=== PATIENT | female | born 1980 | race Caucasian/White ===

== ENCOUNTER 2017-07-15 03:10 | Inpatient (IN) | payer BC ==
[2017-07-15] MEDS ORDERED: Ondansetron 4 MG/2 ML SDV IVPUSH PRN (07:37)
[2017-07-15] MEDS ORDERED: Nalbuphine 20 MG/1 ML Amp IVPUSH PRN (07:37)
[2017-07-15] MEDS ORDERED: Sodium Chloride 0.9% 10 ML Syringe FLUSH PRN (07:37)
--- NOTE | 2017-07-15 09:16 | PCM.LDHP ---
<Sandi Fuller - Last Filed: 07/15/17 09:10> L&D History of Present Illness - General Date of Service: 07/15/17 Admit Problem/Dx: Patient Status Order with Admit Dx/Problem 07/15/17 07:38 Patient Status [ADT] Routine 07/15/17 07:58 Patient Status [ADT] Routine Admission Diagnosis/Problem Admission Diagnosis/Problem Source of Information: Patient History Limitations: Reports: No Limitations - History of Present Illness Introduction:: Patient is a 37 yo at 37 6/7 wks gestation is admitted for labor. MISTY . Blood type is A+. GBS-. Patient had routine care. Previous was delivered early at 36 wks. Patient records shows patient's brother had a cardiac defect diagnosed in childhood. No other complications per patient. Patient is experiencing strong contractions and reports her water breaking early this morning around 0300. Physical exam shows pitting edema +1, but is otherwise unremarkable. 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 : 4 Para: 1 (1021) LMP (Approximate): - Past Surgical History Female Surgical History: Reports: Dilitation & Evacuation (2003) Social & Family History - Family History Other Cardiac Family History: Brother had a heart defect per patient records - Tobacco Use Smoking Status *Q: Never Smoker - Recreational Drug Use Recreational Drug Use: No H&P Review of Systems - Review of Systems: Review Of Systems: See Below General: Reports: No Symptoms HEENT: Reports: No Symptoms Pulmonary: Reports: No Symptoms Cardiovascular: Reports: No Symptoms Gastrointestinal: Reports: No Symptoms Genitourinary: Reports: No Symptoms Musculoskeletal: Reports: No Symptoms Skin: Reports: No Symptoms Psychiatric: Reports: No Symptoms Neurological: Reports: No Symptoms Hematologic/Lymphatic: Reports: No Symptoms Immunologic: Reports: No Symptoms L&D Exam - Exam Exam: See Below - Vital Signs Vital Signs: Last Vital Signs Temp 98.5 F 07/15/17 07:38 Pulse 95 07/15/17 07:38 Resp 15 07/15/17 07:38 BP 129/74 07/15/17 07:38 Pulse Ox Weight: 215 lb - Exam General: Alert, Oriented HEENT: Conjunctiva Clear, Mucosa Moist & [place], Nares Patent, Normal Nasal Septum , Posterior Pharynx Clear Neck: Supple, Trachea Midline, Lymphadenopathy Lungs: Normal Respiratory Effort Cardiovascular: Regular Rate, Regular Rhythm Rectal Exam: Deferred Back Exam: Normal Inspection Extremities: Normal Inspection, Normal Range of Motion, Non-Tender, Normal Capillary Refill, Pedal Edema (+1) Skin: Warm, Dry, Intact Psychiatric: Alert, Normal Affect, Normal Mood - Patient Data Lab Results Last 24 hrs: Laboratory Results - last 24 hr 07/15/17 07/15/17 07/15/17 Range/Units 03:40 05:05 05:05 WBC 8.09 (3.98-10.04) K/mm3 RBC 4.03 (3.98-5.22) M/mm3 Hgb 12.3 (11.2-15.7) gm/L Hct 36.4 (34.1-44.9) % MCV 90.3 (79.4-94.8) fl MCH 30.5 (25.6-32.2) pg MCHC 33.8 (32.2-35.5) g/dl RDW Std Deviation 46.8 H (36.4-46.3) fL Plt Count 294 (182-369) K/mm3 MPV 10.9 (9.4-12.3) fl Neut % (Auto) 57.9 (34.0-71.1) % Lymph % (Auto) 28.3 (19.3-51.7) % [place] % (Auto) 11.4 (4.7-12.5) % Eos % (Auto) 1.7 (0.7-5.8) Baso % (Auto) 0.2 (0.1-1.2) % Neut # (Auto) 4.68 (1.56-6.13) K/mm3 Lymph # (Auto) 2.29 (1.18-3.74) K/mm3 [place] # (Auto) 0.92 H (0.24-0.36) K/mm3 Eos # (Auto) 0.14 (0.04-0.36) K/mm3 Baso # (Auto) 0.02 (0.01-0.08) K/mm3 Membrane Rupture Positive H Blood Type A POSITIVE Gel Antibody Screen Negative Result Diagrams: 07/15/17 05:05 Problem List Initiated/Reviewed/Updated: No Orders Last 24hrs: Active Orders 24 hr Category Date Time Status Patient Status [ADT] Routine ADT 07/15/17 07:38 Active Patient Status [ADT] Routine ADT 07/15/17 07:58 Active Activity as Tolerated [RC] PFP Care 07/15/17 07:38 Active Communication Order [RC] ASDIRECTED Care 07/15/17 07:38 Active Notify Provider [RC] PFP Care 07/15/17 07:38 Active Notify Provider [RC] PRN Care 07/15/17 07:38 Active Peripheral IV Care [RC] . DIRECTED Care 07/15/17 07:38 Active Pump Management, Intrathecal [RC] ASDIRECTED Care 07/15/17 07:39 Active Vital Signs [RC] PER UNIT ROUTINE Care 07/15/17 07:38 Active Clear Liquid Diet [DIET] Diet 07/15/17 Breakfast Active PATIENT RETYPE [BBK] Routine Lab 07/15/17 05:05 Results TYPE AND SCREEN [BBK] Routine Lab 07/15/17 05:05 Results Lactated Ringers [Ringers, Lactated] 1,000 ml Med 07/15/17 07:45 Active IV ASDIRECTED Nalbuphine [Nubain] Med 07/15/17 07:37 Active 10 mg IVPUSH Q2H PRN Ondansetron [Zofran] Med 07/15/17 07:37 Active 4 mg IVPUSH Q4H PRN Sodium Chloride 0.9% [Saline Flush] Med 07/15/17 07:37 Active 10 ml FLUSH ASDIRECTED PRN Electronic Heart Tones Ext w TOCO [WOMSER] Oth 07/15/17 07:38 Ordered Routine Electronic Heart Tones Internal [WOMSER] Per Unit Oth 07/15/17 07:38 Ordered Routine Peripheral IV Insertion Adult [OM.PC] Routine Oth 07/15/17 07:38 Ordered Resuscitation Status Routine Resus Stat 07/15/17 07:37 Ordered Medication Orders Lactated Ringer's (Ringers, Lactated) 1,000 mls @ 100 mls/hr IV ASDIRECTED RIP Nalbuphine HCl (Nubain) 10 mg IVPUSH Q2H PRN PRN Reason: Pain (moderate 4-6) Ondansetron HCl (Zofran) 4 mg IVPUSH Q4H PRN PRN Reason: Nausea/Vomiting Sodium Chloride (Saline Flush) 10 ml FLUSH ASDIRECTED PRN PRN Reason: Keep Vein Open Assessment/Plan Comment:: Patient is a 37 yo at 37 6/7 wks gestation is admitted for labor. MISTY . Blood type is A+. GBS-. Patient had routine care. Previous was delivered early at 36 wks. Patient records shows patient's brother had a cardiac defect diagnosed in childhood. No other complications per patient. Patient is experiencing strong contractions and reports her water breaking early this morning around 0300. Physical exam shows pitting edema +1, but is otherwise unremarkable. Plan: Continue monitoring <Nitish Truong - Last Filed: 07/15/17 10:24> L&D History of Present Illness - General Admit Problem/Dx: Patient Status Order with Admit Dx/Problem 07/15/17 07:38 Patient Status [ADT] Routine 07/15/17 07:58 Patient Status [ADT] Routine Admission Diagnosis/Problem Admission Diagnosis/Problem Source of Information: Patient History Limitations: Reports: No Limitations - History of Present Illness Introduction:: Cervix is 1 cm dilated for bag ruptured she has had constant leaking of fluid with spontaneous rupture membranes approximate 2:33 AM this morning clear fluid. Vertex presentation 50% effaced soft posterior -1 station, having contractions. Location, : Reports: Uterus Quality: Reports: Ache, Pressure Severity: Moderate Improves with: Reports: None Worsens with: Reports: None Associated Symptoms: Reports: N H&P Review of Systems - Review of Systems: Review Of Systems: See Below General: Reports: No Symptoms HEENT: Reports: No Symptoms Pulmonary: Reports: No Symptoms Cardiovascular: Reports: No Symptoms Gastrointestinal: Reports: No Symptoms Genitourinary: Reports: No Symptoms Musculoskeletal: Reports: No Symptoms Skin: Reports: No Symptoms Psychiatric: Reports: No Symptoms Neurological: Reports: No Symptoms Hematologic/Lymphatic: Reports: No Symptoms Immunologic: Reports: No Symptoms L&D Exam - Exam Exam: See Below - Vital Signs Vital Signs: Last Vital Signs Temp 97.9 F 07/15/17 09:30 Pulse 95 07/15/17 09:30 Resp 15 07/15/17 09:30 BP 129/74 07/15/17 09:30 Pulse Ox 100 07/15/17 09:30 - OB Specific Fundal Height In cm: 38 Contraction Duration (sec): 60 Contraction Frequency (min): 3 Contraction Intensity: Mild to Moderate Movement: Active Heart Tones: Present Heart Tones per Min: 140 Heart Rate (FHR) Variability: Moderate (6-25 bmp) Presentation: Vertex - Gómez Score Gómez Score Cervix Position: Posterior Gómez Score Consistency: Soft Gómez Score Effacement: 31-50% Gómez Score Dilation: 1-2 cm Gómez Score 's Station: -1 ,0 Gómez Score Total: 6 - Exam General: Alert, Oriented HEENT: Conjunctiva Clear, Mucosa Moist & [place], Nares Patent, Normal Nasal Septum , Posterior Pharynx Clear, TMs Clear, PERRLA Neck: Supple, Trachea Midline Lungs: Clear to Auscultation, Normal Respiratory Effort Cardiovascular: Regular Rate, Regular Rhythm GI/Abdominal Exam: Normal Bowel Sounds, Soft, Non-Tender, No Organomegaly, No Distention, No Abnormal Bruit, No Mass, Pelvis Stable Rectal Exam: Deferred Genitourinary: Normal external exam, Normal bimanual exam Extremities: Normal Inspection, Normal Range of Motion, Non-Tender, No Pedal Edema, Normal Capillary Refill Skin: Warm, Dry, Intact Neurological: Reflexes Equal Bilateral Psychiatric: Alert, Normal Affect, Normal Mood - Patient Data Lab Results Last 24 hrs: Laboratory Results - last 24 hr 07/15/17 07/15/17 07/15/17 Range/Units 03:40 05:05 05:05 WBC 8.09 (3.98-10.04) K/mm3 RBC 4.03 (3.98-5.22) M/mm3 Hgb 12.3 (11.2-15.7) gm/L Hct 36.4 (34.1-44.9) % MCV 90.3 (79.4-94.8) fl MCH 30.5 (25.6-32.2) pg MCHC 33.8 (32.2-35.5) g/dl RDW Std Deviation 46.8 H (36.4-46.3) fL Plt Count 294 (182-369) K/mm3 MPV 10.9 (9.4-12.3) fl Neut % (Auto) 57.9 (34.0-71.1) % Lymph % (Auto) 28.3 (19.3-51.7) % [place] % (Auto) 11.4 (4.7-12.5) % Eos % (Auto) 1.7 (0.7-5.8) Baso % (Auto) 0.2 (0.1-1.2) % Neut # (Auto) 4.68 (1.56-6.13) K/mm3 Lymph # (Auto) 2.29 (1.18-3.74) K/mm3 [place] # (Auto) 0.92 H (0.24-0.36) K/mm3 Eos # (Auto) 0.14 (0.04-0.36) K/mm3 Baso # (Auto) 0.02 (0.01-0.08) K/mm3 Membrane Rupture Positive H Blood Type A POSITIVE Gel Antibody Screen Negative Result Diagrams: 07/15/17 05:05 - Problem List (1) 37 weeks gestation of SNOMED Code(s): 57477394 ICD Code: Z3A.37 - 37 WEEKS GESTATION OF Status: Acute Current Visit: Yes (2) Spontaneous rupture of amniotic membranes SNOMED Code(s): 994823790 ICD Code: [id number] - Status: Acute Current Visit: Yes Problem List Initiated/Reviewed/Updated: No Orders Last 24hrs: Active Orders 24 hr Category Date Time Status Patient Status [ADT] Routine ADT 07/15/17 07:38 Active Patient Status [ADT] Routine ADT 07/15/17 07:58 Active Activity as Tolerated [RC] PFP Care 07/15/17 07:38 Active Communication Order [RC] ASDIRECTED Care 07/15/17 07:38 Active Communication Order [RC] ASDIRECTED Care 07/15/17 09:30 Active Cooling Warming Measures [RC] ASDIRECTED Care 07/15/17 09:30 Active Notify Provider [RC] ASDIRECTED Care 07/15/17 09:31 Active Notify Provider [RC] PFP Care 07/15/17 07:38 Active Notify Provider [RC] PRN Care 07/15/17 07:38 Active Oxygen Therapy [RC] ASDIRECTED Care 07/15/17 09:30 Active Peripheral IV Care [RC] . DIRECTED Care 07/15/17 07:38 Active Pulse Oximetry [RC] ASDIRECTED Care 07/15/17 09:30 Active Pump Management, Intrathecal [RC] ASDIRECTED Care 07/15/17 07:39 Active Verify Patient Consent Obtain [RC] ASDIRECTED Care 07/15/17 09:31 Active Vital Signs [RC] PER UNIT ROUTINE Care 07/15/17 07:38 Active Vital Signs [RC] Q1H Care 07/15/17 09:30 Active Clear Liquid Diet [DIET] Diet 07/15/17 Breakfast Active PATIENT RETYPE [BBK] Routine Lab 07/15/17 05:05 Results TYPE AND SCREEN [BBK] Routine Lab 07/15/17 05:05 Results Bupivacaine/fentaNYL/NS [fentaNYL/Bupivacaine/NS 2 MCG- Med 07/15/17 10:00 Active 0.125% 100 ML] 100 ml EPIDUR ASDIRECTED Lactated Ringers [Ringers, Lactated] 1,000 ml Med 07/15/17 07:45 Active IV ASDIRECTED Nalbuphine [Nubain] Med 07/15/17 07:37 Active 10 mg IVPUSH Q2H PRN Ondansetron [Zofran] Med 07/15/17 07:37 Active 4 mg IVPUSH Q4H PRN Sodium Chloride 0.9% [Saline Flush] Med 07/15/17 07:37 Active 10 ml FLUSH ASDIRECTED PRN diphenhydrAMINE [Benadryl] Med 07/15/17 09:31 Active 25 mg IVPUSH Q6H PRN ePHEDrine [ePHEDrine Sulfate] Med 07/15/17 09:31 Active 5 mg IVPUSH ASDIRECTED PRN fentaNYL [Sublimaze] Med 07/15/17 09:31 Active 100 mcg EPIDUR Q3H PRN Electronic Heart Tones Ext w TOCO [WOMSER] Oth 07/15/17 07:38 Ordered Routine Electronic Heart Tones Internal [WOMSER] Per Unit Oth 07/15/17 07:38 Ordered Routine Peripheral IV Insertion Adult [OM.PC] Routine Oth 07/15/17 07:38 Ordered Resuscitation Status Routine Resus Stat 07/15/17 07:37 Ordered Medication Orders Diphenhydramine HCl (Benadryl) 25 mg IVPUSH Q6H PRN PRN Reason: Itching Ephedrine Sulfate (Ephedrine Sulfate) 5 mg IVPUSH ASDIRECTED PRN PRN Reason: HYPOTENTSION Fentanyl (Sublimaze) 100 mcg EPIDUR Q3H PRN PRN Reason: PAIN Last Admin: 07/15/17 09:55 Dose: 100 mcg Fentanyl/Bupivacaine HCl (Fentanyl/Bupivacaine/Ns 2 Mcg-0.125% 100 Ml) 100 ml EPIDUR ASDIRECTED RIP Lactated Ringer's (Ringers, Lactated) 1,000 mls @ 100 mls/hr IV ASDIRECTED RIP Nalbuphine HCl (Nubain) 10 mg IVPUSH Q2H PRN PRN Reason: Pain (moderate 4-6) Ondansetron HCl (Zofran) 4 mg IVPUSH Q4H PRN PRN Reason: Nausea/Vomiting Sodium Chloride (Saline Flush) 10 ml FLUSH ASDIRECTED PRN PRN Reason: Keep Vein Open Assessment/Plan Comment:: Patient seen and examined and discussed with medical student for bag ruptured at 1020 clear fluid, patient had gross pooling and leaking of clear fluid since 2:30 AM with spontaneous rupture membranes at that time. Oxytocin augmentation as needed.
[2017-07-15] MEDS: Lactated Ringers 1,000 ML IV SCH ×3 (09:30→11:32)
--- NOTE | 2017-07-15 09:30 | PCM.PREANE ---
Preanesthetic Assessment - Anesthesia/Transfusion/Family Hx Anesthesia History: Prior Anesthesia Without Reaction Family History of Anesthesia Reaction: No Transfusion History: No Prior Transfusion(s) - Review of Systems General: No Symptoms Pulmonary: No Symptoms Cardiovascular: No Symptoms Gastrointestinal: No Symptoms Neurological: No Symptoms Other: Reports: None - Physical Assessment Pulse: 95 O2 Sat by Pulse Oximetry: 100 Respiratory Rate: 15 Blood Pressure: 129/74 Temperature: 36.6 C Vital Signs: Last Vital Signs Temp 36.9 C 07/15/17 07:38 Pulse 95 07/15/17 07:38 Resp 15 07/15/17 07:38 BP 129/74 07/15/17 07:38 Pulse Ox Height: 1.63 m Weight: 97.522 kg ASA Class: 2 Mental Status: Alert & Oriented x3 Dentition: Reports: Normal Dentition Thyro-Mental Finger Breadths: 3 Mouth Opening Finger Breadths: 3 ROM/Head Extension: Full Lungs: Clear to Auscultation, Normal Respiratory Effort Cardiovascular: Regular Rate, Regular Rhythm, No Murmurs - Lab Values: Laboratory Last Values WBC 8.09 K/mm3 (3.98-10.04) 07/15/17 05:05 RBC 4.03 M/mm3 (3.98-5.22) 07/15/17 05:05 Hgb 12.3 gm/L (11.2-15.7) 07/15/17 05:05 Hct 36.4 % (34.1-44.9) 07/15/17 05:05 MCV 90.3 fl (79.4-94.8) 07/15/17 05:05 MCH 30.5 pg (25.6-32.2) 07/15/17 05:05 MCHC 33.8 g/dl (32.2-35.5) 07/15/17 05:05 RDW Std Deviation 46.8 fL (36.4-46.3) H 07/15/17 05:05 Plt Count 294 K/mm3 (182-369) 07/15/17 05:05 MPV 10.9 fl (9.4-12.3) 07/15/17 05:05 Neut % (Auto) 57.9 % (34.0-71.1) 07/15/17 05:05 Lymph % (Auto) 28.3 % (19.3-51.7) 07/15/17 05:05 [place] % (Auto) 11.4 % (4.7-12.5) 07/15/17 05:05 Eos % (Auto) 1.7 (0.7-5.8) 07/15/17 05:05 Baso % (Auto) 0.2 % (0.1-1.2) 07/15/17 05:05 Neut # (Auto) 4.68 K/mm3 (1.56-6.13) 07/15/17 05:05 Lymph # (Auto) 2.29 K/mm3 (1.18-3.74) 07/15/17 05:05 [place] # (Auto) 0.92 K/mm3 (0.24-0.36) H 07/15/17 05:05 Eos # (Auto) 0.14 K/mm3 (0.04-0.36) 07/15/17 05:05 Baso # (Auto) 0.02 K/mm3 (0.01-0.08) 07/15/17 05:05 Membrane Rupture Positive H 07/15/17 03:40 Blood Type A POSITIVE 07/15/17 05:05 Gel Antibody Screen Negative 07/15/17 05:05 - Allergies Allergies/Adverse Reactions: Allergies Allergy/AdvReac Type Severity Reaction Status Date / Time No Known Allergies Allergy Verified 07/15/17 07:42 - Anesthesia Plan Pre-Op Medication Ordered: None - Acknowledgements Anesthesia Type Planned: Epidural Pt an Appropriate Candidate for the Planned Anesthesia: Yes Alternatives and Risks of Anesthesia Discussed w Pt/Guardian: Yes Pt/Guardian Understands and Agrees with Anesthesia Plan: Yes PreAnesthesia Questionnaire Gastrointestinal History: Reports: GERD 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
[2017-07-15] MEDS ORDERED: ePHEDrine 50 MG/ML SDV IVPUSH PRN (09:31)
[2017-07-15] MEDS ORDERED: fentaNYL 100 MCG/2 ML SDV EPIDUR PRN (09:31)
[2017-07-15] MEDS ORDERED: diphenhydrAMINE 50 MG/ML SDV IVPUSH PRN (09:31)
[2017-07-15] MEDS ORDERED: Bupivacaine/fentaNYL/NS 100 ML Bag EPIDUR SCH (10:00)
[2017-07-15] MEDS ORDERED: Oxytocin/Lactated Ringers 10 UNIT/1,000 ML BAG IV ONE (10:29)
[2017-07-15] MEDS ORDERED: Oxytocin/Lactated Ringers 10 UNIT/1,000 ML BAG IV SCH (10:30)
--- NOTE | 2017-07-15 16:52 | PCM.SN ---
- Free Text/Narrative Note: Cervix is 5 cm dilated, 90-100% effaced, soft, mid position, vertex -1. Category 1 heart rate. Pitocin at 16 MIUs per minute
[2017-07-15] MEDS ORDERED: Lidocaine 1% 50 ML MDV ONE (18:11)
--- NOTE | 2017-07-15 18:54 | PCM.DEL ---
L & D Note - General Info Date of Service: 07/15/17 Mother's Due Date: 07/30/17 - Delivery Note Labor: Spontaneous, Augmented by ARM, Augmented by Oxytocin Delivery Outcome: Livebirth (female live born MANISH Sunday[birth year]17 at 1835. 9/9 wt: 3100 g/ 6 lbs 13.3 oz) Infant Delivery Method: Spontaneous Vaginal Delivery-Single Delivery Mode: Spontaneous Presentation: Left Occiput Anterior (MANISH) Nuchal Cord: None Prep: Povidone-Iodine (Betadine Anesthesia Type: Local, Epidural Anesthetic: Lidocaine (Xylocaine) 1% Plain Local Anesthetic Volume: 2cc Amniotic Fluid Description: Clear Episiotomy Type: None Laceration: 1st Degree (midline ) Suture type: Other (monocryl ) Suture size: 3-0 Placenta: Intact, Spontaneous (central cord insertion. delivered at 1840 sunday07/15/17. Tao intact examined discarded) Cord: 3 Vessels Estimated Blood Loss: 250 Resuscitation Needed: No [place]: Suctioned, Bulb Syringe, Stimulated, Warmed, [place] Used, Warmer Used Provider: Nitish Truong Score 1 min: 9 Score 5 min: 9 - Patient Data Vitals - Most Recent: Last Vital Signs Temp 97.9 F 07/15/17 09:30 Pulse 95 07/15/17 09:30 Resp 15 07/15/17 09:30 BP 129/74 07/15/17 09:30 Pulse Ox 100 07/15/17 09:30 Weight - Most Recent: 215 lb I&O - Last 24 Hours: Intake & Output 07/15/17 07/15/17 07/15/17 06:59 14:59 22:59 Intake Total 360 Balance 360 Lab Results Last 24 Hours: Laboratory Results - last 24 hr 07/15/17 07/15/17 07/15/17 Range/Units 03:40 05:05 05:05 WBC 8.09 (3.98-10.04) K/mm3 RBC 4.03 (3.98-5.22) M/mm3 Hgb 12.3 (11.2-15.7) gm/L Hct 36.4 (34.1-44.9) % MCV 90.3 (79.4-94.8) fl MCH 30.5 (25.6-32.2) pg MCHC 33.8 (32.2-35.5) g/dl RDW Std Deviation 46.8 H (36.4-46.3) fL Plt Count 294 (182-369) K/mm3 MPV 10.9 (9.4-12.3) fl Neut % (Auto) 57.9 (34.0-71.1) % Lymph % (Auto) 28.3 (19.3-51.7) % [place] % (Auto) 11.4 (4.7-12.5) % Eos % (Auto) 1.7 (0.7-5.8) Baso % (Auto) 0.2 (0.1-1.2) % Neut # (Auto) 4.68 (1.56-6.13) K/mm3 Lymph # (Auto) 2.29 (1.18-3.74) K/mm3 [place] # (Auto) 0.92 H (0.24-0.36) K/mm3 Eos # (Auto) 0.14 (0.04-0.36) K/mm3 Baso # (Auto) 0.02 (0.01-0.08) K/mm3 Membrane Rupture Positive H Blood Type A POSITIVE Gel Antibody Screen Negative Med Orders - Current: Current Medications Diphenhydramine HCl (Benadryl) 25 mg IVPUSH Q6H PRN PRN Reason: Itching Ephedrine Sulfate (Ephedrine Sulfate) 5 mg IVPUSH ASDIRECTED PRN PRN Reason: HYPOTENTSION Fentanyl (Sublimaze) 100 mcg EPIDUR Q3H PRN PRN Reason: PAIN Last Admin: 07/15/17 09:55 Dose: 100 mcg Fentanyl/Bupivacaine HCl (Fentanyl/Bupivacaine/Ns 2 Mcg-0.125% 100 Ml) 100 ml EPIDUR ASDIRECTED RIP Lactated Ringer's (Ringers, Lactated) 1,000 mls @ 100 mls/hr IV ASDIRECTED RIP Last Admin: 07/15/17 11:32 Dose: 999 mls/hr Oxytocin/Lactated Ringer's (Pitocin In Lr 10 Units/1,000 Ml) 10 unit in 1,000 mls @ 12 mls/hr IV TITRATE RIP; 2 MUNITS/MIN PRN Reason: Protocol Last Titration: 07/15/17 16:00 Dose: 16 munits/min, 96 mls/hr Nalbuphine HCl (Nubain) 10 mg IVPUSH Q2H PRN PRN Reason: Pain (moderate 4-6) Ondansetron HCl (Zofran) 4 mg IVPUSH Q4H PRN PRN Reason: Nausea/Vomiting Sodium Chloride (Saline Flush) 10 ml FLUSH ASDIRECTED PRN PRN Reason: Keep Vein Open Discontinued Medications Oxytocin/Lactated Ringer's (Pitocin In Lr 10 Units/1,000 Ml) Confirm Administered Dose 10 unit in 1,000 mls @ as directed IV .SideStep ONE Stop: 07/15/17 10:30 Last Admin: 07/15/17 11:32 Dose: Not Given Lidocaine HCl (Xylocaine 1%) Confirm Administered Dose 50 ml .ROUTE .SideStep ONE Stop: 07/15/17 18:12 - Problem List & Annotations (1) 37 weeks gestation of SNOMED Code(s): 50292130 Code(s): Z3A.37 - 37 WEEKS GESTATION OF Status: Acute Current Visit: Yes (2) Spontaneous rupture of amniotic membranes SNOMED Code(s): 366132517 Code(s): RNE1864 - Status: Acute Current Visit: Yes (3) First degree laceration of perineum during delivery, SNOMED Code(s): 135253165 Code(s): O70.0 - FIRST DEGREE PERINEAL LACERATION DURING DELIVERY Status: Acute Current Visit: Yes - Problem List Review Problem List Initiated/Reviewed/Updated: No - My Orders Last 24 Hours: My Active Orders 07/15/17 07:37 Nalbuphine [Nubain] 10 mg IVPUSH Q2H PRN Ondansetron [Zofran] 4 mg IVPUSH Q4H PRN Sodium Chloride 0.9% [Saline Flush] 10 ml FLUSH ASDIRECTED PRN Resuscitation Status Routine 07/15/17 07:38 Patient Status [ADT] Routine Communication Order [RC] ASDIRECTED Peripheral IV Care [RC] . DIRECTED Vital Signs [RC] PER UNIT ROUTINE Electronic Heart Tones Ext w TOCO [WOMSER] Routine Electronic Heart Tones Internal [WOMSER] Per Unit Routine Peripheral IV Insertion Adult [OM.PC] Routine 07/15/17 07:39 Pump Management, Intrathecal [RC] ASDIRECTED 07/15/17 07:45 Lactated Ringers [Ringers, Lactated] 1,000 ml IV ASDIRECTED 07/15/17 07:58 Patient Status [ADT] Routine 07/15/17 10:30 Oxytocin/Lactated Ringers [Pitocin in LR 10 Units/1,000 ML] 10 unit in 1,000 ml IV TITRATE 07/15/17 Breakfast Clear Liquid Diet [DIET] - Plan Plan:: Patient seen and examined and discussed with medical student for bag ruptured at 1020 clear fluid, patient had gross pooling and leaking of clear fluid since 2:30 AM with spontaneous rupture membranes at that time. Oxytocin augmentation as needed.
[2017-07-15] MEDS ORDERED: Benzocaine/Menthol 20%-0.5% Spray 56 GM Canister TOP PRN (19:07)
[2017-07-15] MEDS ORDERED: Acetaminophen 325 MG Tab PO PRN (19:07)
[2017-07-15] MEDS ORDERED: Docusate Sodium 100 MG Cap PO PRN (19:07)
[2017-07-15] MEDS ORDERED: Lanolin 100% Cream 7 GM Tube TOP PRN (19:07)
[2017-07-15] MEDS ORDERED: Witch Hazel Medicated Pads 100/Jar TOP PRN (19:07)
[2017-07-15] MEDS ORDERED: Lidocaine 1% 50 ML MDV INJECT ONE (19:29)
[2017-07-15] MEDS: Ibuprofen 600 MG Tab PO PRN (20:12)
[2017-07-15] MEDS ORDERED: ePHEDrine 50 MG/ML SDV ONE (22:22)
[2017-07-15] MEDS ORDERED: Bupivacaine 0.25% 10 ML SDV ONE (22:22)
[2017-07-16] MEDS: Ibuprofen 600 MG Tab PO PRN ×4 (00:46→22:00)
--- NOTE | 2017-07-16 05:57 | PCM.DCSUM1 ---
Discharge Summary - Hospital Course Free Text/Narrative:: [facility] LIVE L/D Delivery Note Patient Name: NEGRA GILL Date of : 84 Patient Status: Inpatient Attending Provider: Nitish Truong Date: 07/15/17 18:48 Initialization Date: 07/15/17 18:48 L & D Note - General Info Date of Service: 07/15/17 Mother's Due Date: 07/30/17 - Delivery Note Labor: Spontaneous, Augmented by ARM, Augmented by Oxytocin Delivery Outcome: Livebirth (female live born MANISH Sunday07/15/17 at 1835. 9/ wt: 3100 g/ 6 lbs 13.3 oz) Delivery Method: Spontaneous Vaginal Delivery-Single Infant Delivery Mode: Spontaneous Presentation: Left Occiput Anterior (MANISH) Nuchal Cord: None Prep: Povidone-Iodine (Betadine Anesthesia Type: Local, Epidural Anesthetic: Lidocaine (Xylocaine) 1% Plain Local Anesthetic Volume: 2cc Amniotic Fluid Description: Clear Episiotomy Type: None Laceration: 1st Degree (midline ) Suture type: Other (monocryl ) Suture size: 3-0 Placenta: Intact, Spontaneous (central cord insertion. delivered at 1840 sunday07/15/17. [place] intact examined discarded) Cord: 3 Vessels Estimated Blood Loss: 250 Resuscitation Needed: No Rocky: Suctioned, Bulb Syringe, Stimulated, Warmed, [place] Used, Warmer Used Provider: Nitish Truong Score 1 min: 9 Score 5 min: 9 - Patient Data Vitals - Most Recent: Last Vital Signs Temp 97.9 F 07/15/17 09:30 Pulse 95 07/15/17 09:30 Resp 15 07/15/17 09:30 BP 129/74 07/15/17 09:30 Pulse Ox 100 07/15/17 09:30 Weight - Most Recent: 215 lb I&O - Last 24 Hours: Intake & Output 07/15/17 07/15/17 07/15/17 06:59 14:59 22:59 Intake Total 360 Balance 360 Lab Results Last 24 Hours: Laboratory Results - last 24 hr 07/15/17 07/15/17 07/15/17 Range/Units 03:40 05:05 05:05 WBC 8.09 (3.98-10.04) K/mm3 RBC 4.03 (3.98-5.22) M/mm3 Hgb 12.3 (11.2-15.7) gm/L Hct 36.4 (34.1-44.9) % MCV 90.3 (79.4-94.8) fl MCH 30.5 (25.6-32.2) pg MCHC 33.8 (32.2-35.5) g/dl RDW Std Deviation 46.8 H (36.4-46.3) fL Plt Count 294 (182-369) K/mm3 MPV 10.9 (9.4-12.3) fl Neut % (Auto) 57.9 (34.0-71.1) % Lymph % (Auto) 28.3 (19.3-51.7) % Rosebud % (Auto) 11.4 (4.7-12.5) % Eos % (Auto) 1.7 (0.7-5.8) Baso % (Auto) 0.2 (0.1-1.2) % Neut # (Auto) 4.68 (1.56-6.13) K/mm3 Lymph # (Auto) 2.29 (1.18-3.74) K/mm3 Rose[place] # (Auto) 0.92 H (0.24-0.36) K/mm3 Eos # (Auto) 0.14 (0.04-0.36) K/mm3 Baso # (Auto) 0.02 (0.01-0.08) K/mm3 Membrane Rupture Positive H Blood Type A POSITIVE Gel Antibody Screen Negative Med Orders - Current: Current Medications Diphenhydramine HCl (Benadryl) 25 mg IVPUSH Q6H PRN PRN Reason: Itching Ephedrine Sulfate (Ephedrine Sulfate) 5 mg IVPUSH ASDIRECTED PRN PRN Reason: HYPOTENTSION Fentanyl (Sublimaze) 100 mcg EPIDUR Q3H PRN PRN Reason: PAIN Last Admin: 07/15/17 09:55 Dose: 100 mcg Fentanyl/Bupivacaine HCl (Fentanyl/Bupivacaine/Ns 2 Mcg-0.125% 100 Ml) 100 ml EPIDUR ASDIRECTED RIP Lactated Ringer's (Ringers, Lactated) 1,000 mls @ 100 mls/hr IV ASDIRECTED RIP Last Admin: 07/15/17 11:32 Dose: 999 mls/hr Oxytocin/Lactated Ringer's (Pitocin In Lr 10 Units/1,000 Ml) 10 unit in 1,000 mls @ 12 mls/hr IV TITRATE RIP; 2 MUNITS/MIN PRN Reason: Protocol Last Titration: 07/15/17 16:00 Dose: 16 munits/min, 96 mls/hr Nalbuphine HCl (Nubain) 10 mg IVPUSH Q2H PRN PRN Reason: Pain (moderate 4-6) Ondansetron HCl (Zofran) 4 mg IVPUSH Q4H PRN PRN Reason: Nausea/Vomiting Sodium Chloride (Saline Flush) 10 ml FLUSH ASDIRECTED PRN PRN Reason: Keep Vein Open Discontinued Medications Oxytocin/Lactated Ringer's (Pitocin In Lr 10 Units/1,000 Ml) Confirm Administered Dose 10 unit in 1,000 mls @ as directed IV .[facility] [employer] ONE Stop: 07/15/17 10:30 Last Admin: 07/15/17 11:32 Dose: Not Given Lidocaine HCl (Xylocaine 1%) Confirm Administered Dose 50 ml .ROUTE .[employer] [employer] ONE Stop: 07/15/17 18:12 - Problem List & Annotations (1) 37 weeks gestation of SNOMED Code(s): 38433343 Code(s): Z3A.37 - 37 WEEKS GESTATION OF Status: Acute Current Visit: Yes (2) Spontaneous rupture of amniotic membranes SNOMED Code(s): 938345007 Code(s): AHC4220 - Status: Acute Current Visit: Yes (3) First degree laceration of perineum during delivery, SNOMED Code(s): 244022481 Code(s): O70.0 - FIRST DEGREE PERINEAL LACERATION DURING DELIVERY Status: Acute Current Visit: Yes - Problem List Review Problem List Initiated/Reviewed/Updated: No - My Orders Last 24 Hours: My Active Orders 07/15/17 07:37 Nalbuphine [Nubain] 10 mg IVPUSH Q2H PRN Ondansetron [Zofran] 4 mg IVPUSH Q4H PRN Sodium Chloride 0.9% [Saline Flush] 10 ml FLUSH ASDIRECTED PRN Resuscitation Status Routine 07/15/17 07:38 Patient Status [ADT] Routine Communication Order [RC] ASDIRECTED Peripheral IV Care [RC] . DIRECTED Vital Signs [RC] PER UNIT ROUTINE Electronic Heart Tones Ext w TOCO [WOMSER] Routine Electronic Heart Tones Internal [WOMSER] Per Unit Routine Peripheral IV Insertion Adult [OM.PC] Routine 07/15/17 07:39 Pump Management, Intrathecal [RC] ASDIRECTED 07/15/17 07:45 Lactated Ringers [Ringers, Lactated] 1,000 ml IV ASDIRECTED 07/15/17 07:58 Patient Status [ADT] Routine 07/15/17 10:30 Oxytocin/Lactated Ringers [Pitocin in LR 10 Units/1,000 ML] 10 unit in 1,000 ml IV TITRATE 07/15/17 Breakfast Clear Liquid Diet [DIET] - Plan Plan:: Patient seen and examined and discussed with medical student for bag ruptured at 1020 clear fluid, patient had gross pooling and leaking of clear fluid since 2:30 AM with spontaneous rupture membranes at that time. Oxytocin augmentation as needed. HPI Initial Comments: [facility] LIVE L/D Delivery Note Patient Name: NEGRA GILL Date of : 84 Patient Status: Inpatient Attending Provider: Nitish Truong Date: 07/15/17 18:48 Initialization Date: 07/15/17 18:48 L & D Note - General Info Date of Service: 07/15/17 Mother's Due Date: 07/30/17 - Delivery Note Labor: Spontaneous, Augmented by ARM, Augmented by Oxytocin Delivery Outcome: Livebirth (female live born MANISHSunday[birth year] at 1835. 9/9 wt: 3100 g/ 6 lbs 13.3 oz) Delivery Method: Spontaneous Vaginal Delivery-Single Infant Delivery Mode: Spontaneous Presentation: Left Occiput Anterior (MANISH) Nuchal Cord: None Prep: Povidone-Iodine (Betadine Anesthesia Type: Local, Epidural Anesthetic: Lidocaine (Xylocaine) 1% Plain Local Anesthetic Volume: 2cc Amniotic Fluid Description: Clear Episiotomy Type: None Laceration: 1st Degree (midline ) Suture type: Other (monocryl ) Suture size: 3-0 Placenta: Intact, Spontaneous (central cord insertion. delivered at 184Sunday07/15/17. Tao intact examined discarded) Cord: 3 Vessels Estimated Blood Loss: 250 Resuscitation Needed: No Rocky: Suctioned, Bulb Syringe, Stimulated, Warmed, [place] Used, Warmer Used Provider: Nitish Truong Score 1 min: 9 Score 5 min: 9 - Patient Data Vitals - Most Recent: Last Vital Signs Temp 97.9 F 07/15/17 09:30 Pulse 95 07/15/17 09:30 Resp 15 07/15/17 09:30 BP 129/74 07/15/17 09:30 Pulse Ox 100 07/15/17 09:30 Weight - Most Recent: 215 lb I&O - Last 24 Hours: Intake & Output 07/15/17 07/15/17 07/15/17 06:59 14:59 22:59 Intake Total 360 Balance 360 Lab Results Last 24 Hours: Laboratory Results - last 24 hr 07/15/17 07/15/17 07/15/17 Range/Units 03:40 05:05 05:05 WBC 8.09 (3.98-10.04) K/mm3 RBC 4.03 (3.98-5.22) M/mm3 Hgb 12.3 (11.2-15.7) gm/L Hct 36.4 (34.1-44.9) % MCV 90.3 (79.4-94.8) fl MCH 30.5 (25.6-32.2) pg MCHC 33.8 (32.2-35.5) g/dl RDW Std Deviation 46.8 H (36.4-46.3) fL Plt Count 294 (182-369) K/mm3 MPV 10.9 (9.4-12.3) fl Neut % (Auto) 57.9 (34.0-71.1) % Lymph % (Auto) 28.3 (19.3-51.7) % Rosebud % (Auto) 11.4 (4.7-12.5) % Eos % (Auto) 1.7 (0.7-5.8) Baso % (Auto) 0.2 (0.1-1.2) % Neut # (Auto) 4.68 (1.56-6.13) K/mm3 Lymph # (Auto) 2.29 (1.18-3.74) K/mm3 [place] # (Auto) 0.92 H (0.24-0.36) K/mm3 Eos # (Auto) 0.14 (0.04-0.36) K/mm3 Baso # (Auto) 0.02 (0.01-0.08) K/mm3 Membrane Rupture Positive H Blood Type A POSITIVE Gel Antibody Screen Negative Med Orders - Current: Current Medications Diphenhydramine HCl (Benadryl) 25 mg IVPUSH Q6H PRN PRN Reason: Itching Ephedrine Sulfate (Ephedrine Sulfate) 5 mg IVPUSH ASDIRECTED PRN PRN Reason: HYPOTENTSION Fentanyl (Sublimaze) 100 mcg EPIDUR Q3H PRN PRN Reason: PAIN Last Admin: 07/15/17 09:55 Dose: 100 mcg Fentanyl/Bupivacaine HCl (Fentanyl/Bupivacaine/Ns 2 Mcg-0.125% 100 Ml) 100 ml EPIDUR ASDIRECTED RIP Lactated Ringer's (Ringers, Lactated) 1,000 mls @ 100 mls/hr IV ASDIRECTED RIP Last Admin: 07/15/17 11:32 Dose: 999 mls/hr Oxytocin/Lactated Ringer's (Pitocin In Lr 10 Units/1,000 Ml) 10 unit in 1,000 mls @ 12 mls/hr IV TITRATE RIP; 2 MUNITS/MIN PRN Reason: Protocol Last Titration: 07/15/17 16:00 Dose: 16 munits/min, 96 mls/hr Nalbuphine HCl (Nubain) 10 mg IVPUSH Q2H PRN PRN Reason: Pain (moderate 4-6) Ondansetron HCl (Zofran) 4 mg IVPUSH Q4H PRN PRN Reason: Nausea/Vomiting Sodium Chloride (Saline Flush) 10 ml FLUSH ASDIRECTED PRN PRN Reason: Keep Vein Open Discontinued Medications Oxytocin/Lactated Ringer's (Pitocin In Lr 10 Units/1,000 Ml) Confirm Administered Dose 10 unit in 1,000 mls @ as directed IV .STK-MED ONE Stop: 07/15/17 10:30 Last Admin: 07/15/17 11:32 Dose: Not Given Lidocaine HCl (Xylocaine 1%) Confirm Administered Dose 50 ml .ROUTE .[employer] [employer] ONE Stop: 07/15/17 18:12 - Problem List & Annotations (1) 37 weeks gestation of SNOMED Code(s): 01366254 Code(s): Z3A.37 - 37 WEEKS GESTATION OF Status: Acute Current Visit: Yes (2) Spontaneous rupture of amniotic membranes SNOMED Code(s): 997395705 Code(s): YHA8641 - Status: Acute Current Visit: Yes (3) First degree laceration of perineum during delivery, SNOMED Code(s): 240209189 Code(s): O70.0 - FIRST DEGREE PERINEAL LACERATION DURING DELIVERY Status: Acute Current Visit: Yes - Problem List Review Problem List Initiated/Reviewed/Updated: No - My Orders Last 24 Hours: My Active Orders 07/15/17 07:37 Nalbuphine [Nubain] 10 mg IVPUSH Q2H PRN Ondansetron [Zofran] 4 mg IVPUSH Q4H PRN Sodium Chloride 0.9% [Saline Flush] 10 ml FLUSH ASDIRECTED PRN Resuscitation Status Routine 07/15/17 07:38 Patient Status [ADT] Routine Communication Order [RC] ASDIRECTED Peripheral IV Care [RC] . DIRECTED Vital Signs [RC] PER UNIT ROUTINE Electronic Heart Tones Ext w TOCO [WOMSER] Routine Electronic Heart Tones Internal [WOMSER] Per Unit Routine Peripheral IV Insertion Adult [OM.PC] Routine 07/15/17 07:39 Pump Management, Intrathecal [RC] ASDIRECTED 07/15/17 07:45 Lactated Ringers [Ringers, Lactated] 1,000 ml IV ASDIRECTED 07/15/17 07:58 Patient Status [ADT] Routine 07/15/17 10:30 Oxytocin/Lactated Ringers [Pitocin in LR 10 Units/1,000 ML] 10 unit in 1,000 ml IV TITRATE 07/15/17 Breakfast Clear Liquid Diet [DIET] - Plan Plan:: Patient seen and examined and discussed with medical student for bag ruptured at 1020 clear fluid, patient had gross pooling and leaking of clear fluid since 2:30 AM with spontaneous rupture membranes at that time. Oxytocin augmentation as needed. Brief History: [facility] LIVE . L/D Delivery Note. Patient Name: NEGRA GILL Record Number: [id number]. Date of : Patient Status: Inpatient. Attending Provider: Nitish Truong Number: [id number]. Date: 07/15/17 18:48Initialization Date: 07/15/17 18:48. L & D Note. - General Info. Date of Service: 07/15/17. Mother's Due Date: 07/30/17. - Delivery Note. Labor: Spontaneous, Augmented by ARM, Augmented by Oxytocin. Delivery Outcome: Livebirth (female live born MANISH Sunday07/15/17 at 1835. 06/09 wt: 3100 g/ 6 lbs 13.3 oz). Delivery Method: Spontaneous Vaginal Delivery-Single. Delivery Mode: Spontaneous. Presentation: Left Occiput Anterior (MANISH). Nuchal Cord: None. Prep: Povidone- Iodine (Betadine. Anesthesia Type: Local, Epidural. Anesthetic: Lidocaine ( Xylocaine) 1% Plain. Local Anesthetic Volume: 2cc. Amniotic Fluid Description : Clear. Episiotomy Type: None. Laceration: 1st Degree (midline ). Suture type: Other (monocryl ). Suture size: 3-0. Placenta: Intact, Spontaneous ( central cord insertion. delivered at 1840 sunday07/15/17. Tao intact examined discarded). Cord: 3 Vessels. Estimated Blood Loss: 250. Resuscitation Needed: No. Rocky: Suctioned, Bulb Syringe, Stimulated, Warmed , [place] Used, Warmer Used. Provider: Nitish Truong. Score 1 min: 9. Score 5 min: 9. - Patient Data. Vitals - Most Recent: Last Vital Signs. Temp 97.9 F 07/15/17 09:30. Pulse 95 07/15/17 09:30. Resp 15 07/15/17 09:30. BP 129/74 07/15/17 09:30. Pulse Ox 100 07/15/17 09: 30. Weight - Most Recent: 215 lb. I&O - Last 24 Hours: Intake & Output. . 06:5914:5922:59. Intake Oesbs714. [id number]. Lab Results Last 24 Hours: Laboratory Results - last 24 hr. 07/15/1710/Range/Units. 03:4005:0505:05. WBC 8.09 (3.98-10.04) K/mm3. RBC 4.03 (3.98- 5.22) M/mm3. Hgb 12.3 (11.2-15.7) gm/L. Hct 36.4 (34.1-44.9) %. MCV 90.3 ( 79.4-94.8) fl. MCH 30.5 (25.6-32.2) pg. MCHC 33.8 (32.2-35.5) g/dl. RDW Std Deviation 46.8 H (36.4-46.3) fL. Plt Count 294 (182-369) K/mm3. MPV 10.9 (9.4-12.3) fl. Neut % (Auto) 57.9 (34.0-71.1) %. Lymph % (Auto) 28.3 ( 19.3-51.7) %. Rosebud % (Auto) 11.4 (4.7-12.5) %. Eos % (Auto) 1.7 (0.7-5.8). Baso % (Auto) 0.2 (0.1-1.2) %. Neut # (Auto) 4.68 (1.56-6.13) K/mm3. Lymph # (Auto) 2.29 (1.18-3.74) K/mm3. [place] # (Auto) 0.92 H (0.24-0.36) K/mm3. Eos # (Auto) 0.14 (0.04-0.36) K/mm3. Baso # (Auto) 0.02 (0.01-0.08) K/mm3. Membrane Rupture Positive H. Blood Type A POSITIVE. Gel Antibody Screen Negative. Med Orders - Current: Current Medications. Diphenhydramine HCl ( Benadryl) 25 mg IVPUSH Q6H PRN. PRN Reason: Itching. Ephedrine Sulfate ( Ephedrine Sulfate) 5 mg IVPUSH ASDIRECTED PRN. PRN Reason: HYPOTENTSION. Fentanyl (Sublimaze) 100 mcg EPIDUR Q3H PRN. PRN Reason: PAIN. Last Admin: 09:55 Dose: 100 mcg. Fentanyl/Bupivacaine HCl (Fentanyl/Bupivacaine/Ns 2 Mcg-0.125% 100 Ml) 100 ml EPIDUR ASDIRECTED RIP. Lactated Ringer's (Ringers , Lactated) 1,000 mls @ 100 mls/hr IV ASDIRECTED RIP. Last Admin: 07/15/17 11: 32 Dose: 999 mls/hr. Oxytocin/Lactated Ringer's (Pitocin In Lr 10 Units/1,000 Ml) 10 unit in 1,000 mls @ 12 mls/hr IV TITRATE RIP; 2 MUNITS/MIN. PRN Reason : Protocol. Last Titration: 07/15/17 16:00 Dose: 16 munits/min, 96 mls/hr. Nalbuphine HCl (Nubain) 10 mg IVPUSH Q2H PRN. PRN Reason: Pain (moderate 4-6) . Ondansetron HCl (Zofran) 4 mg IVPUSH Q4H PRN. PRN Reason: Nausea/Vomiting. Sodium Chloride (Saline Flush) 10 ml FLUSH ASDIRECTED PRN. PRN Reason: Keep Vein Open. Discontinued Medications. Oxytocin/Lactated Ringer's (Pitocin In Lr 10 Units/1,000 Ml) Confirm Administered Dose 10 unit in 1,000 mls @ as directed IV .STK-MED ONE. Stop: 07/15/17 10:30. Last Admin: 07/15/17 11:32 Dose: Not Given. Lidocaine HCl (Xylocaine 1%) Confirm Administered Dose 50 ml .ROUTE .STK-MED ONE. Stop: 07/15/17 18:12. - Problem List & Annotations. (1) 37 weeks gestation of . SNOMED Code(s): 06693585. Code(s): Z3A.37 - 37 WEEKS GESTATION OF Status: Acute Current Visit: Yes. (2) Spontaneous rupture of amniotic membranes. SNOMED Code(s): 472608513. Code(s) : ITY8395 - Status: Acute Current Visit: Yes. (3) First degree laceration of perineum during delivery, . SNOMED Code(s): 349864389. Code(s): O70.0 - FIRST DEGREE PERINEAL LACERATION DURING DELIVERY Status: Acute Current Visit: Yes. - Problem List Review. Problem List Initiated/Reviewed/ Updated: No. - My Orders. Last 24 Hours: My Active Orders. 07/15/17 07:37. Nalbuphine [Nubain] 10 mg IVPUSH Q2H PRN. Ondansetron [Zofran] 4 mg IVPUSH Q4H PRN. Sodium Chloride 0.9% [Saline Flush] 10 ml FLUSH ASDIRECTED PRN. Resuscitation Status Routine. 07/15/17 07:38. Patient Status [ADT] Routine. Communication Order [RC] ASDIRECTED. Peripheral IV Care [RC] . DIRECTED. Vital Signs [RC] PER UNIT ROUTINE. Electronic Heart Tones Ext w TOCO [ WOMSER] Routine. Electronic Heart Tones Internal [WOMSER] Per Unit Routine. Peripheral IV Insertion Adult [OM.PC] Routine. 07/15/17 07:39. Pump Management, Intrathecal [RC] ASDIRECTED. 07/15/17 07:45. Lactated Ringers [ Ringers, Lactated] 1,000 ml IV ASDIRECTED. 07/15/17 07:58. Patient Status [ADT ] Routine. 07/15/17 10:30. Oxytocin/Lactated Ringers [Pitocin in LR 10 Units/1 ,000 ML] 10 unit in 1,000 ml IV TITRATE. 07/15/17 Breakfast. Clear Liquid Diet [DIET]. - Plan. Plan:: Patient seen and examined and discussed with medical student for bag ruptured at 1020 clear fluid, patient had gross pooling and leaking of clear fluid since 2:30 AM with spontaneous rupture membranes at that time. Oxytocin augmentation as needed. - Discharge Data Discharge Date: 07/16/17 Discharge Disposition: Home, Self-Care 01 Condition: Good - Discharge Diagnosis/Problem(s) (1) 37 weeks gestation of SNOMED Code(s): 97956197 ICD Code: Z3A.37 - 37 WEEKS GESTATION OF Status: Acute Current Visit: Yes (2) Spontaneous rupture of amniotic membranes SNOMED Code(s): 534928026 ICD Code: KEG2735 - Status: Acute Current Visit: Yes (3) First degree laceration of perineum during delivery, SNOMED Code(s): 608190045 ICD Code: O70.0 - FIRST DEGREE PERINEAL LACERATION DURING DELIVERY Status: Acute Current Visit: Yes - Patient Summary/Data Complications: None Consults: None Hospital Course: Uneventful - Patient Instructions Diet: Regular Diet as Tolerated Driving: Do Not Drive (48 hours) Showering/Bathing: May Shower Notify Provider of: Fever, Increased Pain, Swelling and Redness, Drainage, Nausea and/or Vomiting - Discharge Plan Home Medications: Home Meds Acetaminophen [Tylenol] 650 mg PO Q6H PRN tablet 07/16/17 [Rx] Benzocaine/Menthol [Dermoplast Pain Relief [place]] 1 spray TOP ASDIRECTED PRN canister 07/16/17 [Rx] Docusate Sodium [Colace] 100 mg PO BID PRN cap 07/16/17 [Rx] Ibuprofen [IJD: Ibuprofen] 600 mg PO Q6H PRN tablet 07/16/17 [Rx] Lanolin [Lansinoh HPA] 1 applic TOP ASDIRECTED PRN tube 07/16/17 [Rx] Witch Anni [Tucks] 1 pad TOP ASDIRECTED PRN pad 07/16/17 [Rx] Referrals: Kathy Lopez MD [Physician] - (Taken appointment for 6 weeks.) - Discharge Summary/Plan Comment DC Time >30 min.: No - Patient Data Vitals - Most Recent: Last Vital Signs Temp 97.5 F 07/16/17 04:29 Pulse 73 07/16/17 04:29 Resp 17 07/16/17 04:29 BP 118/58 L 07/16/17 04:29 Pulse Ox 96 07/16/17 04:29 Weight - Most Recent: 215 lb I&O - Last 24 hours: Intake & Output 07/15/17 07/15/17 07/16/17 14:59 22:59 06:59 Intake Total 360 Balance 360 Lab Results - Last 24 hrs: Laboratory Results - last 24 hr 07/15/17 07/15/17 Range/Units 05:05 05:05 WBC 8.09 (3.98-10.04) K/mm3 RBC 4.03 (3.98-5.22) M/mm3 Hgb 12.3 (11.2-15.7) gm/L Hct 36.4 (34.1-44.9) % MCV 90.3 (79.4-94.8) fl MCH 30.5 (25.6-32.2) pg MCHC 33.8 (32.2-35.5) g/dl RDW Std Deviation 46.8 H (36.4-46.3) fL Plt Count 294 (182-369) K/mm3 MPV 10.9 (9.4-12.3) fl Neut % (Auto) 57.9 (34.0-71.1) % Lymph % (Auto) 28.3 (19.3-51.7) % Rosebud % (Auto) 11.4 (4.7-12.5) % Eos % (Auto) 1.7 (0.7-5.8) Baso % (Auto) 0.2 (0.1-1.2) % Neut # (Auto) 4.68 (1.56-6.13) K/mm3 Lymph # (Auto) 2.29 (1.18-3.74) K/mm3 [place] # (Auto) 0.92 H (0.24-0.36) K/mm3 Eos # (Auto) 0.14 (0.04-0.36) K/mm3 Baso # (Auto) 0.02 (0.01-0.08) K/mm3 Blood Type A POSITIVE Gel Antibody Screen Negative Med Orders - Current: Current Medications Acetaminophen (Tylenol) 650 mg PO Q4H PRN PRN Reason: mild pain or fever Benzocaine/Menthol (Dermoplast Pain Relief [place]) 0 gm TOP ASDIRECTED PRN PRN Reason: Perineal Comfort Measure Last Admin: 07/15/17 20:13 Dose: 1 applic Docusate Sodium (Colace) 100 mg PO BID PRN PRN Reason: Constipation Emollient Ointment (Lansinoh Hpa) 0 gm TOP ASDIRECTED PRN PRN Reason: Sore Nipples Oxytocin 20 unit/ Lactated (Ringer's) 1,002 mls @ 500 mls/hr IV ASDIRECTED RIP Last Admin: 07/15/17 18:35 Dose: 500 mls/hr Ibuprofen (Motrin) 600 mg PO Q4H PRN PRN Reason: Mild pain or fever Last Admin: 07/16/17 00:46 Dose: 600 mg Witch Anni (Tucks) 1 pad TOP ASDIRECTED PRN PRN Reason: Hemorrhoid pain Last Admin: 07/15/17 20:13 Dose: 1 applic Discontinued Medications Diphenhydramine HCl (Benadryl) 25 mg IVPUSH Q6H PRN PRN Reason: Itching Ephedrine Sulfate (Ephedrine Sulfate) 5 mg IVPUSH ASDIRECTED PRN PRN Reason: HYPOTENTSION Fentanyl (Sublimaze) 100 mcg EPIDUR Q3H PRN PRN Reason: PAIN Last Admin: 07/15/17 09:55 Dose: 100 mcg Fentanyl/Bupivacaine HCl (Fentanyl/Bupivacaine/Ns 2 Mcg-0.125% 100 Ml) 100 ml EPIDUR ASDIRECTED RIP Lactated Ringer's (Ringers, Lactated) 1,000 mls @ 100 mls/hr IV ASDIRECTED RIP Last Admin: 07/15/17 11:32 Dose: 999 mls/hr Oxytocin/Lactated Ringer's (Pitocin In Lr 10 Units/1,000 Ml) 10 unit in 1,000 mls @ 12 mls/hr IV TITRATE RIP; 2 MUNITS/MIN PRN Reason: Protocol Last Titration: 07/15/17 18:30 Dose: 20 munits/min, 120 mls/hr Oxytocin/Lactated Ringer's (Pitocin In Lr 10 Units/1,000 Ml) Confirm Administered Dose 10 unit in 1,000 mls @ as directed IV .STK-MED ONE Stop: 07/15/17 10:30 Last Admin: 07/15/17 11:32 Dose: Not Given Lidocaine HCl (Xylocaine 1%) Confirm Administered Dose 50 ml .ROUTE .STK-MED ONE Stop: 07/15/17 18:12 Last Admin: 07/16/17 01:00 Dose: Not Given Lidocaine HCl (Xylocaine 1%) 50 ml INJECT ONETIME ONE Stop: 07/15/17 19:30 Last Admin: 07/15/17 19:34 Dose: 50 ml Nalbuphine HCl (Nubain) 10 mg IVPUSH Q2H PRN PRN Reason: Pain (moderate 4-6) Ondansetron HCl (Zofran) 4 mg IVPUSH Q4H PRN PRN Reason: Nausea/Vomiting Sodium Chloride (Saline Flush) 10 ml FLUSH ASDIRECTED PRN PRN Reason: Keep Vein Open *Q Meaningful Use (DIS) - VTE *Q VTE Criteria *Q: - Stroke *Q Stroke Criteria *Q: - AMI *Q AMI Criteria *Q:
--- NOTE | 2017-07-16 07:34 | PCM48HPAN ---
Post Anesthesia Note - EVALUATION WITHIN 48HRS OF ANESTHETIC Vital Signs in Normal Range: Yes Patient Participated in Evaluation: Yes Respiratory Function Stable: Yes Airway Patent: Yes Cardiovascular Function Stable: Yes Hydration Status Stable: Yes Pain Control Satisfactory: Yes Nausea and Vomiting Control Satisfactory: Yes Mental Status Recovered: Yes
[2017-07-16] MEDS ORDERED: Simethicone 80 MG Tab.Chew PO PRN (22:47)
[2017-07-17] MEDS: Ibuprofen 600 MG Tab PO PRN (08:27)
--- NOTE | 2017-07-17 10:39 | PCM.DCSUM1 ---
Discharge Summary - Hospital Course Brief History: [facility] LIVE . L/D Delivery Note. Patient Name: NEGRA GILL Record Number: [id number]. Date of : Patient Status: Inpatient. Attending Provider: Nitish Truong Number: [id number]. Date: 07/15/17 18:48Initialization Date: 07/15/17 18:48. L & D Note. - General Info. Date of Service: 07/15/17. Mother's Due Date: 07/30/17. - Delivery Note. Labor: Spontaneous, Augmented by ARM, Augmented by Oxytocin. Delivery Outcome: Livebirth (female live born MANISH Sunday07/[birth year]17 at 1835. 9/9 wt: 3100 g/ 6 lbs 13.3 oz). Delivery Method: Spontaneous Vaginal Delivery-Single. Infant Delivery Mode: Spontaneous. Presentation: Left Occiput Anterior (MANISH). Nuchal Cord: None. Prep: Povidone- Iodine (Betadine. Anesthesia Type: Local, Epidural. Anesthetic: Lidocaine ( Xylocaine) 1% Plain. Local Anesthetic Volume: 2cc. Amniotic Fluid Description : Clear. Episiotomy Type: None. Laceration: 1st Degree (midline ). Suture type: Other (monocryl ). Suture size: 3-0. Placenta: Intact, Spontaneous ( central cord insertion. delivered at 1840 sunday07/15/17. Tao intact examined discarded). Cord: 3 Vessels. Estimated Blood Loss: 250. Resuscitation Needed: No. : Suctioned, Bulb Syringe, Stimulated, Warmed , Harts Used, Warmer Used. Provider: Nitish Truong. Score 1 min: 9. Score 5 min: 9. - Patient Data. Vitals - Most Recent: Last Vital Signs. Temp 97.9 F 07/15/17 09:30. Pulse 95 07/15/17 09:30. Resp 15 07/15/17 09:30. BP 129/74 07/15/17 09:30. Pulse Ox 100 07/15/17 09: 30. Weight - Most Recent: 215 lb. I&O - Last 24 Hours: Intake & Output. . 06:5914:5922:59. Intake [id number]. [id number]. Lab Results Last 24 Hours: Laboratory Results - last 24 hr. 07/15/1710Range/Units. 03:4005:0505:05. WBC 8.09 (3.98-10.04) K/mm3. RBC 4.03 (3.98- 5.22) M/mm3. Hgb 12.3 (11.2-15.7) gm/L. Hct 36.4 (34.1-44.9) %. MCV 90.3 ( 79.4-94.8) fl. MCH 30.5 (25.6-32.2) pg. MCHC 33.8 (32.2-35.5) g/dl. RDW Std Deviation 46.8 H (36.4-46.3) fL. Plt Count 294 (182-369) K/mm3. MPV 10.9 (9.4-12.3) fl. Neut % (Auto) 57.9 (34.0-71.1) %. Lymph % (Auto) 28.3 ( 19.3-51.7) %. [place] % (Auto) 11.4 (4.7-12.5) %. Eos % (Auto) 1.7 (0.7-5.8). Baso % (Auto) 0.2 (0.1-1.2) %. Neut # (Auto) 4.68 (1.56-6.13) K/mm3. Lymph # (Auto) 2.29 (1.18-3.74) K/mm3. [place] # (Auto) 0.92 H (0.24-0.36) K/mm3. Eos # (Auto) 0.14 (0.04-0.36) K/mm3. Baso # (Auto) 0.02 (0.01-0.08) K/mm3. Membrane Rupture Positive H. Blood Type A POSITIVE. Gel Antibody Screen Negative. Med Orders - Current: Current Medications. Diphenhydramine HCl ( Benadryl) 25 mg IVPUSH Q6H PRN. PRN Reason: Itching. Ephedrine Sulfate ( Ephedrine Sulfate) 5 mg IVPUSH ASDIRECTED PRN. PRN Reason: HYPOTENTSION. Fentanyl (Sublimaze) 100 mcg EPIDUR Q3H PRN. PRN Reason: PAIN. Last Admin: 09:55 Dose: 100 mcg. Fentanyl/Bupivacaine HCl (Fentanyl/Bupivacaine/Ns 2 Mcg-0.125% 100 Ml) 100 ml EPIDUR ASDIRECTED RIP. Lactated Ringer's (Ringers , Lactated) 1,000 mls @ 100 mls/hr IV ASDIRECTED RIP. Last Admin: 07/15/17 11: 32 Dose: 999 mls/hr. Oxytocin/Lactated Ringer's (Pitocin In Lr 10 Units/1,000 Ml) 10 unit in 1,000 mls @ 12 mls/hr IV TITRATE RIP; 2 MUNITS/MIN. PRN Reason : Protocol. Last Titration: 07/15/17 16:00 Dose: 16 munits/min, 96 mls/hr. Nalbuphine HCl (Nubain) 10 mg IVPUSH Q2H PRN. PRN Reason: Pain (moderate 4-6) . Ondansetron HCl (Zofran) 4 mg IVPUSH Q4H PRN. PRN Reason: Nausea/Vomiting. Sodium Chloride (Saline Flush) 10 ml FLUSH ASDIRECTED PRN. PRN Reason: Keep Vein Open. Discontinued Medications. Oxytocin/Lactated Ringer's (Pitocin In Lr 10 Units/1,000 Ml) Confirm Administered Dose 10 unit in 1,000 mls @ as directed IV .STK-MED ONE. Stop: 07/15/17 10:30. Last Admin: 07/15/17 11:32 Dose: Not Given. Lidocaine HCl (Xylocaine 1%) Confirm Administered Dose 50 ml .ROUTE .STK-MED ONE. Stop: 07/15/17 18:12. - Problem List & Annotations. (1) 37 weeks gestation of . SNOMED Code(s): 36106450. Code(s): Z3A.37 - 37 WEEKS GESTATION OF Status: Acute Current Visit: Yes. (2) Spontaneous rupture of amniotic membranes. SNOMED Code(s): 134817413. Code(s) : SQY4022 - Status: Acute Current Visit: Yes. (3) First degree laceration of perineum during delivery, . SNOMED Code(s): 182888054. Code(s): O70.0 - FIRST DEGREE PERINEAL LACERATION DURING DELIVERY Status: Acute Current Visit: Yes. - Problem List Review. Problem List Initiated/Reviewed/ Updated: No. - My Orders. Last 24 Hours: My Active Orders. 07/15/17 07:37. Nalbuphine [Nubain] 10 mg IVPUSH Q2H PRN. Ondansetron [Zofran] 4 mg IVPUSH Q4H PRN. Sodium Chloride 0.9% [Saline Flush] 10 ml FLUSH ASDIRECTED PRN. Resuscitation Status Routine. 07/15/17 07:38. Patient Status [ADT] Routine. Communication Order [RC] ASDIRECTED. Peripheral IV Care [RC] . DIRECTED. Vital Signs [RC] PER UNIT ROUTINE. Electronic Heart Tones Ext w TOCO [ WOMSER] Routine. Electronic Heart Tones Internal [WOMSER] Per Unit Routine. Peripheral IV Insertion Adult [OM.PC] Routine. 07/15/17 07:39. Pump Management, Intrathecal [RC] ASDIRECTED. 07/15/17 07:45. Lactated Ringers [ Ringers, Lactated] 1,000 ml IV ASDIRECTED. 07/15/17 07:58. Patient Status [ADT ] Routine. 07/15/17 10:30. Oxytocin/Lactated Ringers [Pitocin in LR 10 Units/1 ,000 ML] 10 unit in 1,000 ml IV TITRATE. 07/15/17 Breakfast. Clear Liquid Diet [DIET]. - Plan. Plan:: Patient seen and examined and discussed with medical student for bag ruptured at 1020 clear fluid, patient had gross pooling and leaking of clear fluid since 2:30 AM with spontaneous rupture membranes at that time. Oxytocin augmentation as needed. - Discharge Data Discharge Date: 07/17/17 Discharge Disposition: Home, Self-Care 01 Condition: Good - Discharge Diagnosis/Problem(s) (1) 37 weeks gestation of SNOMED Code(s): 47475219 ICD Code: Z3A.37 - 37 WEEKS GESTATION OF Status: Acute Current Visit: Yes (2) Spontaneous rupture of amniotic membranes SNOMED Code(s): 677967818 ICD Code: [id number] - Status: Acute Current Visit: Yes (3) First degree laceration of perineum during delivery, SNOMED Code(s): 694481139 ICD Code: O70.0 - FIRST DEGREE PERINEAL LACERATION DURING DELIVERY Status: Acute Current Visit: Yes - Patient Summary/Data Complications: None Consults: None Hospital Course: Uneventful - Patient Instructions Diet: Regular Diet as Tolerated Driving: Do Not Drive (48 hours) Showering/Bathing: May Shower Notify Provider of: Fever, Increased Pain, Swelling and Redness, Drainage, Nausea and/or Vomiting - Discharge Plan Home Medications: Home Meds Acetaminophen [Tylenol] 650 mg PO Q6H PRN tablet 07/16/17 [Rx] Benzocaine/Menthol [Dermoplast Pain Relief [place]] 1 spray TOP ASDIRECTED PRN canister 07/16/17 [Rx] Docusate Sodium [Colace] 100 mg PO BID PRN cap 07/16/17 [Rx] Ibuprofen [IJD: Ibuprofen] 600 mg PO Q6H PRN tablet 07/16/17 [Rx] Lanolin [Lansinoh HPA] 1 applic TOP ASDIRECTED PRN tube 07/16/17 [Rx] Witch Anni [Tucks] 1 pad TOP ASDIRECTED PRN pad 07/16/17 [Rx] Referrals: Kathy Lopez MD [Physician] - (Taken appointment for 6 weeks.) - Discharge Summary/Plan Comment DC Time >30 min.: No - Patient Data Vitals - Most Recent: Last Vital Signs Temp 97.5 F 07/17/17 08:15 Pulse 95 07/17/17 08:15 Resp 14 07/17/17 08:15 BP 136/81 07/17/17 08:15 Pulse Ox 95 07/17/17 08:15 Weight - Most Recent: 215 lb I&O - Last 24 hours: Intake & Output 07/16/17 07/17/17 07/17/17 22:59 06:59 14:59 Intake Total 120 Balance 120 Med Orders - Current: Current Medications Acetaminophen (Tylenol) 650 mg PO Q4H PRN PRN Reason: mild pain or fever Benzocaine/Menthol (Dermoplast Pain Relief [place]) 0 gm TOP ASDIRECTED PRN PRN Reason: Perineal Comfort Measure Last Admin: 07/15/17 20:13 Dose: 1 applic Docusate Sodium (Colace) 100 mg PO BID PRN PRN Reason: Constipation Emollient Ointment (Lansinoh Hpa) 0 gm TOP ASDIRECTED PRN PRN Reason: Sore Nipples Oxytocin 20 unit/ Lactated (Ringer's) 1,002 mls @ 500 mls/hr IV ASDIRECTED RIP Last Admin: 07/15/17 18:35 Dose: 500 mls/hr Ibuprofen (Motrin) 600 mg PO Q4H PRN PRN Reason: Mild pain or fever Last Admin: 07/17/17 08:27 Dose: 600 mg Simethicone (Simethicone) 80 mg PO Q4H PRN PRN Reason: Gas Last Admin: 07/16/17 23:12 Dose: 80 mg Witch Anni (Tucks) 1 pad TOP ASDIRECTED PRN PRN Reason: Hemorrhoid pain Last Admin: 07/15/17 20:13 Dose: 1 applic Discontinued Medications Bupivacaine HCl (Sensorcaine-Mpf 0.25%) 10 ml .ROUTE .STK-MED ONE Stop: 07/15/17 22:23 Diphenhydramine HCl (Benadryl) 25 mg IVPUSH Q6H PRN PRN Reason: Itching Ephedrine Sulfate (Ephedrine Sulfate) 5 mg IVPUSH ASDIRECTED PRN PRN Reason: HYPOTENTSION Ephedrine Sulfate (Ephedrine Sulfate) 50 mg .ROUTE .STK-MED ONE Stop: 07/15/17 22:23 Fentanyl (Sublimaze) 100 mcg EPIDUR Q3H PRN PRN Reason: PAIN Last Admin: 07/15/17 09:55 Dose: 100 mcg Fentanyl/Bupivacaine HCl (Fentanyl/Bupivacaine/Ns 2 Mcg-0.125% 100 Ml) 100 ml EPIDUR ASDIRECTED RIP Lactated Ringer's (Ringers, Lactated) 1,000 mls @ 100 mls/hr IV ASDIRECTED RIP Last Admin: 07/15/17 11:32 Dose: 999 mls/hr Oxytocin/Lactated Ringer's (Pitocin In Lr 10 Units/1,000 Ml) 10 unit in 1,000 mls @ 12 mls/hr IV TITRATE RIP; 2 MUNITS/MIN PRN Reason: Protocol Last Titration: 07/15/17 18:30 Dose: 20 munits/min, 120 mls/hr Oxytocin/Lactated Ringer's (Pitocin In Lr 10 Units/1,000 Ml) Confirm Administered Dose 10 unit in 1,000 mls @ as directed IV .STK-MED ONE Stop: 07/15/17 10:30 Last Admin: 07/15/17 11:32 Dose: Not Given Lidocaine HCl (Xylocaine 1%) Confirm Administered Dose 50 ml .ROUTE .STK-MED ONE Stop: 07/15/17 18:12 Last Admin: 07/16/17 01:00 Dose: Not Given Lidocaine HCl (Xylocaine 1%) 50 ml INJECT ONETIME ONE Stop: 07/15/17 19:30 Last Admin: 07/15/17 19:34 Dose: 50 ml Nalbuphine HCl (Nubain) 10 mg IVPUSH Q2H PRN PRN Reason: Pain (moderate 4-6) Ondansetron HCl (Zofran) 4 mg IVPUSH Q4H PRN PRN Reason: Nausea/Vomiting Sodium Chloride (Saline Flush) 10 ml FLUSH ASDIRECTED PRN PRN Reason: Keep Vein Open *Q Meaningful Use (DIS) - VTE *Q VTE Criteria *Q: - Stroke *Q Stroke Criteria *Q: - AMI *Q AMI Criteria *Q:
== END 2017-07-17 11:30 | disposition home or self-care (01) | DRG 560 ==
LOC: JD.OBCHECK 03:10 → JD.OB 03:16 → JD.OBCHECK 07:57 → JD.OB 07:58 → OBSVTOIN 18:35
PROVIDERS: ADMIT Obstetrics & Gynecology; ATTEND Obstetrics & Gynecology
PROC: 10E0XZZ Delivery of Products of Conception, External Approach (ICD-10-PCS; principal; 2017-07-15)
PROC: 0HQ9XZZ Repair Perineum Skin, External Approach (ICD-10-PCS; 2017-07-15)
PROC: 00HU33Z Insertion of Infusion Device into Spinal Canal, Percutaneous Approach (ICD-10-PCS; 2017-07-15)
PROC: 3E0R3BZ Introduction of Anesthetic Agent into Spinal Canal, Percutaneous Approach (ICD-10-PCS; 2017-07-15)
DX: O42.02 Full-term premature rupture of membranes, onset of labor within 24 hours of rupture (principal); Z3A.38 38 weeks gestation of pregnancy; Z37.0 Single live birth; O70.0 First degree perineal laceration during delivery
CPT/HCPCS: 36415; 51702; 59300; 59409; 84112; 85025; 86850; 86900; 86901; A9270-GY; J2590; J3010; J7120